=== PATIENT | female | born 1975 | race Caucasian/White ===

== ENCOUNTER → 2016-06-16 | Outpatient (REF) | payer BC ==
[2016-06-16 19:16] LABS: PERCENT SATURATION 23.5 % (13.2-37.4)
== END ==
LOC: M LAB REF 16:43
PROVIDERS: ATTEND Internal Medicine Medical Oncology
DX: D50.9 Iron deficiency anemia, unspecified (principal)

== ENCOUNTER → 2017-03-04 | Outpatient (REF) | payer BC ==
[2017-03-04 17:49] LABS: VITAMIN B12 LEVEL 415 PG/ML
[2017-03-04 17:50] LABS: FOLATE 7.9 NG/ML
[2017-03-04 17:52] LABS: FERRITIN 36 NG/ML (8-252); IRON (FE) 77 UG/DL (50-170); PERCENT SATURATION 24.5 % (13.2-45.0); TOTAL IRON BINDING CAPACITY 314 UG/DL (250-450)
== END ==
LOC: M LAB REF 16:37
DX: D50.9 Iron deficiency anemia, unspecified (principal)